=== PATIENT | male | born 1960 | race Caucasian/White ===

== ENCOUNTER 2017-07-17 09:09 | Emergency (ER) | payer SELFPAY ==
[2017-07-17 09:34] VITALS: RESP 18
[2017-07-17 11:49] LABS: RBC URINE 3 /hpf (0-3); URINE BACTERIA RARE (<OCC); URINE BILIRUBIN NEGATIVE (NEGATIVE); URINE BLOOD 2+ (NEGATIVE); URINE COLOR Yellow (YELLOW); URINE GLUCOSE (UA) NORMAL (Normal); URINE KETONE NEGATIVE (NEGATIVE); URINE LEUKOCYTE ESTERASE NEG Leu/uL (Negative); URINE PROTEIN NEGATIVE (NEGATIVE); URINE UROBILINOGEN NORMAL mg/dL (0.2-1.0); WBC URINE < 1 /hpf (0-5)
--- NOTE | 2017-07-17 12:02 | C.PDOC ---
History Of Present Illness 57 y/o male presents to ED with complaints of dysuria and suprapubic pain for 2- 3 days. Patient has prior history of UTI's in [place]. He denies fever, hematuria , flank pain, abdominal pain, penile discharge. Time Seen by Provider: 07/17/17 09:58 Chief Complaint (Nursing): Male Genitourinary History Per: Patient History/Exam Limitations: no limitations Onset/Duration Of Symptoms: Days Current Symptoms Are (Timing): Still Present Severity: Mild Quality Of Discomfort: "Pain" Associated Symptoms: Urinary Symptoms. denies: Fever, Chills Recent travel outside of the [place]: No Past Medical History Reviewed: Historical Data, Nursing Documentation, Vital Signs Vital Signs: Last Vital Signs Temp 97.8 F 07/17/17 12:54 Pulse 73 07/17/17 12:54 Resp 18 07/17/17 12:54 BP 158/84 H 07/17/17 12:54 Pulse Ox 98 07/17/17 14:37 - Medical History PMH: No Chronic Diseases Family History: States: No Known Family Hx - Social History Hx Alcohol Use: No Hx Substance Use: No - Immunization History Hx Tetanus Toxoid Vaccination: No Hx Influenza Vaccination: No Hx Pneumococcal Vaccination: No Review Of Systems Except As Marked, All Systems Reviewed And Found Negative. Constitutional: Negative for: Fever, Chills Cardiovascular: Negative for: Chest Pain, Palpitations Respiratory: Negative for: Cough, Shortness of Breath Gastrointestinal: Positive for: Abdominal Pain (suprapubic). Negative for: Nausea, Vomiting, Diarrhea Genitourinary: Positive for: Dysuria. Negative for: Frequency, Hematuria, Penile Discharge, Penile Pain Skin: Negative for: Rash Physical Exam - Physical Exam Appears: Well, Non-toxic, No Acute Distress, Other (comfortable) Skin: Normal Color, Warm, Dry Oral Mucosa: Moist Cardiovascular: Rhythm Regular Respiratory: Normal Breath Sounds, No Rales, No Rhonchi, No Wheezing Gastrointestinal/Abdominal: Bowel Sounds, Soft, Tenderness (mild suprapubic tenderness to palpation, (-) McBurney's), No Distention, No Guarding, No Rebound Back: No CVA Tenderness Extremity: Normal ROM Neurological/Psych: Oriented x3 ED Course And Treatment O2 Sat by Pulse Oximetry: 98 (RA) Pulse Ox Interpretation: Normal Progress Note: Urine, urine culture ordered; reviewed, UA showing some blood + bacteria. Will treat for UTI: Cipro and pyridium given. No signs/symptoms of kidney stone. Patient given prescriptions for same and instructed to follow up with PMD/clinic in 1-2 days. He understands he should return to ED if symptoms worsen. Reevaluation Time: 12:30 Reassessment Condition: Improved Disposition Counseled Patient/Family Regarding: Diagnosis, Need For Followup, Rx Given - Disposition Referrals: [facility] [Outside] Disposition: HOME/ ROUTINE Disposition Time: 12:30 Condition: STABLE Prescriptions: Ciprofloxacin [Cipro] 1 tab PO BID #14 tab Naproxen [Naprosyn Tab] 375 mg PO BID PRN #15 tab PRN Reason: pain Phenazopyridine [Pyridium] 100 mg PO TID #9 tab Instructions: Urinary Tract Infection in Men (ED) Forms: [employer] (French) Print Language: BELARUSIAN - Clinical Impression Clinical Impression: UTI (urinary tract infection) - Scribe Statement The provider has reviewed the documentation as recorded by the Scribe SM All medical record entries made by the Scribe were at my direction and personally dictated by me. I have reviewed the chart and agree that the record accurately reflects my personal performance of the history, physical exam, medical decision making, and the department course for this patient. I have also personally directed, reviewed, and agree with the discharge instructions and disposition.
[2017-07-17 12:55] VITALS: BP 158/84; PULSE 73; TEMP 97.8
[2017-07-17 14:37] VITALS: O2SAT 98
== END 2017-07-17 12:50 | disposition home or self-care (01) ==
LOC: C.ER 09:09
DX: N39.0 Urinary tract infection, site not specified (principal)

== ENCOUNTER 2017-11-28 09:20 | Day surgery (SDC) | payer OTHER ==
[2017-11-28 09:56] VITALS: BMI 31.3
[2017-11-28] MEDS ORDERED: Lidocaine Hydrochloride 5 ML INJ ONE (11:04)
[2017-11-28] MEDS ORDERED: Propofol 10 mg/ml Inj (20 ML) ONE ×4 (11:04→12:40)
[2017-11-28] MEDS ORDERED: Lactated Ringer's 1,000 ML IV ONE (11:30)
[2017-11-28] MEDS ORDERED: ePHEDrine 50 mg/ml Inj ONE (11:57)
[2017-11-28 15:48] VITALS: BP 118/61; PULSE 69; RESP 18; TEMP 97.3; O2SAT 98
== END 2017-11-28 15:44 | disposition home or self-care (01) ==
LOC: C.ENDO 09:20
PROVIDERS: ATTEND Internal Medicine
DX: Z12.11 Encounter for screening for malignant neoplasm of colon (principal); K74.60 Unspecified cirrhosis of liver; B18.2 Chronic viral hepatitis C; B96.81 Helicobacter pylori [H. pylori] as the cause of diseases classified elsewhere; I85.00 Esophageal varices without bleeding; K25.9 Gastric ulcer, unspecified as acute or chronic, without hemorrhage or perforation; K29.60 Other gastritis without bleeding; K20.9 Esophagitis, unspecified; K31.89 Other diseases of stomach and duodenum; K63.5 Polyp of colon; K64.8 Other hemorrhoids
CPT/HCPCS: 43239; 43244; 45380; 45385; 88305; J2001; J2704; J7120